=== PATIENT | female | born 1990 | race Native Hawaiian/Other Pacific Islander ===

== ENCOUNTER 2017-05-24 16:39 | Emergency (ER) | payer OTHER ==
[~2017-05-24] VITALS: Ht 152.4 cm; Wt 42.0 kg
[~2017-05-24 16:39] MED LIST: CLON.5 PO; DEXT15TA PO; IBUP600 PO; ORPH100T PO
[2017-05-24 16:43] VITALS: BP 121/75; PULSE 106; RESP 26; TEMP 97.7; O2SAT 98
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
[2017-05-24 17:15] VITALS: BP 124/73; PULSE 102; RESP 24; O2SAT 100
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
[2017-05-24] MEDS ORDERED: KETOROLAC TROMETHAMINE 60 MG/2 ML (IM) VIAL IM ONE (17:30)
[2017-05-24] MEDS ORDERED: LORazepam 2 MG/ML VIAL IM ONE (17:30)
[2017-05-24] MEDS ORDERED: CLON0.5T PO (17:51)
[2017-05-24] MEDS ORDERED: AMPH1TAB29 PO (17:51)
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
[2017-05-24] MEDS ORDERED: HYDR-3533 PO (23:23)
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
[2017-05-24] MEDS ORDERED: MORPHINE SULFATE 4 MG/ML INJ IV PUSH ONE (23:30)
== END 2017-05-24 23:51 | disposition home or self-care (01) ==
LOC: NEPD 16:39
DX: S14.109A Unspecified injury at unspecified level of cervical spinal cord, initial encounter (principal); R20.2 Paresthesia of skin; Z86.59 Personal history of other mental and behavioral disorders; V89.2XXA Person injured in unspecified motor-vehicle accident, traffic, initial encounter
CPT/HCPCS: 72125; 72141; 96372; 96374; 99285; J1885; J2060; J2270; L0150